=== PATIENT | female | born 1975 | race Hispanic/Latino ===

== ENCOUNTER 2024-08-25 12:37 | Emergency (ER) | payer OTHER ==
[~2024-08-25 12:37] MED LIST: Iopamidol 370 76% 100 ML VIAL ONE
[2024-08-25] MEDS ORDERED: Lidocaine 1% (PF) 30 ML VIAL ONE (12:52)
[2024-08-25] MEDS ORDERED: Sodium Chloride 0.9% 1,000 ML ONE (12:52)
[2024-08-25] MEDS ORDERED: Ondansetron PF 4 MG/2 ML Vial ONE (12:53)
[2024-08-25] MEDS ORDERED: Ketorolac Tromethamine 30 MG (1 mL) VIAL ONE (13:02)
[2024-08-25 13:09] LABS: #Lymphocytes 0.4 thou/uL (1.20-3.40); #Monocytes 0.3 thou/uL (0.11-0.59); #Neutrophils 6.6 thou/uL (1.40-6.50); %Basophils 0.4 % (0.0-1.0); %Lymphocytes 5.4 % (21.0-51.0); %Monocytes 4.5 % (0.0-10.0); %Neutrophils 89.7 % (42.0-75.0); Hematocrit 46.6 % (36.0-47.0); Hemoglobin 15.4 g/dL (12.0-16.0); Mean Corpuscular Hemoglobin 28.2 pg (27.0-31.0); Mean Corpuscular Volume 85.5 fl (78.0-98.0); Mean Platelet Volume 7.5 fL (7.4-10.4); Platelet Count 291 10x3/uL (130-400); RBC Distribution Width 11.2 % (11.5-14.5); Red Blood Cell (RBC) Count 5.45 mill/uL (4.20-5.40); White Blood Cell (WBC) Count 7.4 10x3/uL (4.8-10.8)
[2024-08-25 13:17] LABS: Base Excess-Venous 0.7 mmol/L (-2.0 to 3.0); Bicarbonate (HCO3v) 24.5 mmol/L (22.0-28.0); CO2 Tension (PvCO2) 36.3 mmHg (42.0-51.0); Calcium, Ionized 1.12 mmol/L (1.15-1.33); Chloride 103 mmol/L (98-107); Hemoglobin - Calc 16.6 g/dL (12.0-16.0); Potassium 3.7 mmol/L (3.5-5.1); Sodium 141 mmol/L (138-145); T. Carbon Dioxide 25.6 mmol/L (22.0-28.0); vO2 Saturation-calc 86.8 % (60.0-85.0)
[2024-08-25 13:29] LABS: ALT (SGPT) 23 U/L (8-55); AST (SGOT) 15 U/L (5-34); Alkaline Phosphatase 103 U/L (40-110); Anion Gap 16 mmol/L (10-20); BUN (Urea Nitrogen) 13 mg/dL (9.8-20.1); Bilirubin, Total 0.7 mg/dL (0.2-1.2); Calc. Creatinine Clearance 0 mL/min (70-130); Calcium 9.1 mg/dL (7.8-10.44); Carbon Dioxide 24 mmol/L (22-29); Chloride 103 mmol/L (98-107); Estimated GFR 105; Globulin 3.3 g/dL (2.4-3.5); Glucose 229 mg/dL (70-105); Lipase 5 U/L (8-78); Potassium 3.8 mmol/L (3.5-5.1); Protein, Total 7.3 g/dL (6.0-8.3); Sodium 139 mmol/L (136-145)
[2024-08-25 13:30] LABS: Troponin I Less than 0.010 ng/mL (< 0.028)
[2024-08-25 13:43] LABS: Bilirubin Moderate (Negative); Blood, Urine Negative (Negative); Glucose, Urine (Dipstick) Negative (Negative); Ketone, Urine > or equal to 80 mg/dL (Negative); Leukocyte Negative (Negative); Nitrite Negative (Negative); Protein, Urine (Dipstick) > or equal to 300 mg/dL (Neg-Trace); Urobilinogen 0.2 mg/dL (Less than 2); pH, Urine 5.5 (5.0-9.0)
[2024-08-25 13:48] LABS: Clarity Hazy (Clear)
[2024-08-25 13:52] LABS: Amphetamine Not Detected (NotDetected); Bacteria/HPF Rare-Few HPF (None Seen); Barbiturates Screen Not Detected (NotDetected); Benzodiazepine Screen Not Detected (NotDetected); CAUTI Indications for Culture Alt mental st,lethar; Cocaine Metabolite Screen Not Detected (NotDetected); Methadone Not Detected (NotDetected); Methamphetamine Not Detected (NotDetected); Mucous/LPF 2+ LPF (<2+); Opiate Screen Not Detected (NotDetected); Oxycodone Screen Not Detected (NotDetected); Phencyclidine (PCP) Not Detected (NotDetected); RBC/HPF 0-3 HPF (0-3); Squamous Epithelial 0-3 HPF (0-3); THC/Cannabinoid Screen Not Detected (NotDetected); Tricyclic Screen Not Detected (NotDetected)
[2024-08-25 13:53] LABS: Urine Culture Reflex No No
[2024-08-25 13:59] LABS: Specific Gravity, Urine 1.032 (1.002-1.036)
== END 2024-08-25 14:39 | disposition home or self-care (01) ==
LOC: NAV ERS 12:37
DX: R10.84 Generalized abdominal pain (principal); R11.2 Nausea with vomiting, unspecified; E11.9 Type 2 diabetes mellitus without complications
CPT/HCPCS: 74177; 80053; 80306; 81001; 82330; 82435; 82803; 83605; 83690; 84132; 84295; 84443; 84484; 85014; 85025; 93005; 96361; 96374; 96375; J1885; J2405; J7030; Q9967